=== PATIENT | female | born 1985 | race African-American/Black ===

== ENCOUNTER 2019-09-13 02:08 | Emergency (ER) | payer OTHER ==
[~2019-09-13] VITALS: Ht 157.5 cm; Wt 83.9 kg
[2019-09-13 02:40] LABS: HEMATOCRIT 43.1 % (37.0-47.0); MCH 25.6 pg (26.0-34.0); MCHC 32.6 g/dL (28.0-37.0); MCV 78.7 fL (80.0-100.0); MPV 8.4 fl. (7.2-11.1); NUCLEATED RBCS 0 /100WBC; PLATELET COUNT* 329 thou/uL (150-400); RBC 5.48 mil/uL (4.20-5.00); RDW-CV 14.5 % (10.5-14.5); WBC 23.8 thou/uL (4.0-11.0)
[2019-09-13 02:57] LABS: CALCIUM 9.2 mg/dL (8.5-10.1); CREATININE 1.1 mg/dL (0.6-1.3)
[2019-09-13 03:02] LABS: TOTAL PROTEIN 9.1 g/dL (6.4-8.2)
[2019-09-13 03:03] LABS: POTASSIUM 4.8 mmol/L (3.5-5.1)
[2019-09-13 04:05] LABS: ABSOLUTE BASOPHILS 0.2 thou/uL (0.0-0.2); ABSOLUTE LYMPHOCYTES 4.8 thou/uL (0.8-5.3); ABSOLUTE MONOCYTES 1.4 thou/uL (0.0-1.2); ABSOLUTE NEUTROPHILS 17.4 thou/uL (1.6-8.1); PLATELET ESTIMATE ADEQUATE
[2019-09-13 05:35] VITALS: BP 194/126
--- NOTE | 2019-09-13 11:30 | EKG ---
[place] [address] ELECTROCARDIOGRAM REPORT Name: LORETTA BELLE Room: [facility]#: [id number] Admission: 09/13/19 Attend Phys: Discharge: 09/13/19 Date of : 89 Report #: [id number] THIS REPORT FOR: //name// [facility] ED Test Date: 2019-09-13 Test Time: 05:10:47 Pat Name: LORETTA BELLE Department: Room: Gender: F [employer]: MICHOACANO : 1985 Requested By: Cece Mccall Order Number: [id number] MD: Kb Trevizo Measurements Intervals [place] Rate: 88 P: 40 ID: 150 QRS: 47 QRSD: 86 T: 55 QT: 418 QTc: 506 Interpretive Statements Sinus rhythm Left atrial enlargement Prolonged QT interval No previous ECG available for comparison Electronically Signed On 09-13-2019 11:30:24 CDT by Kb Trevizo [email or web address] <ELECTRONICALLY SIGNED> By: Kb Trevizo MD, [facility] 09/13/19 1130 0510 0510 Kb Trevizo MD, FACC /EPI
== END 2019-09-13 05:35 | disposition left against medical advice (07) ==
LOC: M.ERS 02:08
PROVIDERS: Emergency Medicine
DX: F14.121 Cocaine abuse with intoxication with delirium (principal)